=== PATIENT | male | born 1995 | race Caucasian/White ===

== ENCOUNTER → 2017-08-11 15:08 | Outpatient (CLI) | payer OTHER, SELFPAY ==
--- NOTE | 2017-08-11 15:11 | DI.RAD.S_ITS ---
PROCEDURE: XR SHOULDER RT MIN 2V INDICATIONS: 22 year-old male with right shoulder pain with repetitive motion, and history of 2013 shoulder surgery. TECHNIQUE: 3 views of the shoulder were acquired. COMPARISON: [facility], , SHOULDER WITH CONTRAST, 02/08/2013, 15:18. FINDINGS: Bones: No fractures or dislocations. No suspicious bony lesions. Visualized ribs appear intact. Soft tissues: No suspicious soft tissue calcifications. IMPRESSION: No radiographic explanation for right shoulder pain. Dictated by: Kang Walls M.D. on 08/11/2017 at 15:27 Approved by: Kang Walls M.D. on 08/11/2017 at 15:29
== END ==
PROVIDERS: Visit Provider Physician Assistant
DX: M25.511 Pain in right shoulder (principal)
CPT/HCPCS: 73030